=== PATIENT | male | born 1985 | race Caucasian/White ===

== ENCOUNTER 2022-09-13 17:40 | Emergency (ER) | payer BC ==
[2022-09-13] MEDS: Ketorolac 60 MG/2 ML SDV IM ONE (18:22)
[2022-09-13 18:43] LABS: HEMATOCRIT 45.4 % (40.0-54.0); HEMOGLOBIN 15.7 g/dL (13.0-18.0); MEAN CORPUSCULAR HEMOGLOBIN 29.1 pg (27.0-32.0); MEAN CORPUSCULAR HGB CONC 34.6 g/dL (31.0-35.0); MEAN CORPUSCULAR VOLUME 84 fL (76-96); WHITE BLOOD CELL COUNT,WBC 10.5 K/uL (4.0-11.0)
[2022-09-13 18:44] LABS: BASOPHILS ABSOLUTE AUTO 0.03 K/uL (0.02-0.10); BASOPHILS PERCENT AUTO 0.3 % (0.0-0.5); EOSINOPHILS ABSOLUTE AUTO 0.28 K/uL (0.04-0.40); EOSINOPHILS PERCENT AUTO 2.7 % (1.0-5.0); LYMPHOCYTES PERCENT AUTO 27.6 % (20.0-40.0); MONOCYTES ABSOLUTE AUTO 0.69 K/uL (0.20-0.80); MONOCYTES PERCENT AUTO 6.6 % (3.0-10.0); NEUTROPHILS PERCENT AUTO 62.8 % (45.0-70.0); PLATELET COUNT,PLT 315 K/uL (150-400); RED CELL DISTRIBUTION WIDTH 13.3 % (11.0-16.0)
[2022-09-13 18:57] LABS: A/G RATIO 1.1 (0.8-2.0); ALBUMIN 4.1 g/dL (3.4-5.0); ANION GAP 12.7 mmol/L (5.0-15.0); BILIRUBIN TOTAL 0.5 mg/dL (0.0-1.0); BUN/CREATININE RATIO 21.8 (6-25); CALCIUM 8.7 mg/dL (8.5-10.1); CARBON DIOXIDE,CO2 26.3 mmol/L (21.0-32.0); CREATININE 1.01 mg/dL (0.70-1.30); EST CRCL DRUG DOSING (CG) 117.56 mL/min; PROTEIN TOTAL,TP 7.7 g/dL (6.4-8.2)
== END 2022-09-13 19:20 | disposition home or self-care (01) ==
LOC: LB.ED 17:40
DX: R51.9 Headache, unspecified (principal)
CPT/HCPCS: 36415; 80053; 85025; 96372; 99283; 99284; J1885